=== PATIENT | male | born 1980 | race Hispanic/Latino ===

== ENCOUNTER 2022-04-22 09:44 | Emergency (ER) | payer OTHER ==
[~2022-04-22] VITALS: Ht 177.8 cm; Wt 95.3 kg
[2022-04-22 10:19] LABS: BASOPHILS % 0.6 % (0.0-1.0); EOSINOPHILS # (AUTO) 0.2 (0.0-0.4); EOSINOPHILS % 3.5 % (0.0-6.0); HEMATOCRIT 38.2 % (38.2-49.6); HEMOGLOBIN 11.9 g/dL (14.0-18.0); LYMPHOCYTES # (AUTO) 1.2 (1.0-3.2); LYMPHOCYTES % 24.9 % (18.0-39.1); MEAN CORPUSCULAR HEMOGLOBIN 27.2 pg (28-32); MEAN CORPUSCULAR HGB CONC 31.2 g/dL (31-35); MEAN CORPUSCULAR VOLUME 87.4 fL (81-99); MONOCYTES % 20.7 % (4.4-11.3); NEUTROPHILS % 40.5 % (38.7-80.0); PLATELET COUNT 258 x10e3/uL (140-360); RED BLOOD COUNT 4.37 x10e6/uL (4.3-5.7); RED CELL DISTRIBUTION WIDTH 16.8 % (11.7-14.4)
[2022-04-22 10:42] LABS: ALBUMIN 3.9 g/dL (3.5-5.0); ALBUMIN/GLOBULIN RATIO 0.9 (0.8-2.0); CALCIUM 10.8 mg/dL (8.4-10.2); CREATININE, SERUM 0.93 mg/dL (0.72-1.25)
[2022-04-22 10:47] LABS: INR 1.04; PROTHROMBIN TIME 13.8 seconds (11.9-14.5)
[2022-04-22 11:00] LABS: ANISOCYTOSIS SLIGHT; EOSINOPHILS % (MANUAL) 1 % (0-7); HYPOCHROMASIA SLIGHT; LYMPHOCYTES % (MANUAL) 22 % (19-48); METAMYELOCYTES % (MANUAL) 3 % (0-0); MONOCYTES % (MANUAL) 15 % (3.4-9.0); MYELOCYTES % (MANUAL) 2 % (0-0); NEUTROPHILS % (MANUAL) 53 % (40-74); PLATELET ESTIMATE ADEQUATE; PLATELET MORPHOLOGY COMMENT NORMAL
[2022-04-22 11:06] LABS: CLARITY,URINE CLEAR (CLEAR); COLOR,URINE YELLOW (YELLOW); KETONES,URINE NEGATIVE (NEGATIVE); LEUKOCYTE ESTERASE ,URINE NEGATIVE (NEGATIVE); NITRITE,URINE NEGATIVE (NEGATIVE); PROTEIN,URINE DIPSTICK NEGATIVE (NEGATIVE); URINE UROBILINOGEN 0.2 mg/dL (0.2 - 1)
[2022-04-22 11:20] LABS: BACTERIA,URINE RARE /HPF; RBC,URINE 0-5 /HPF (0-5); WBC,URINE (MAN) 0-5 /HPF (0-5)
[2022-04-22] MEDS ORDERED: ASPIRIN 81 MG CHEW TAB PO ONE (13:00)
[2022-04-22] MEDS ORDERED: KETOROLAC TROMETHAMINE 30 MG/ML VIAL IV ONE (13:00)
[2022-04-22 14:07] VITALS: BP 132/76
== END 2022-04-22 14:12 | disposition other institution (70) ==
LOC: ER 09:55
DX: R20.0 Anesthesia of skin (principal); R29.818 Other symptoms and signs involving the nervous system; R51.9 Headache, unspecified; Z85.72 Personal history of non-Hodgkin lymphomas; Z79.899 Other long term (current) drug therapy
CPT/HCPCS: 0223U; 36415; 70450; 71045; 80053; 81001; 83605; 83880; 84484; 85025; 85610; 87040; 93005; 99284; J1885